=== PATIENT | female | born 1960 ===

== ENCOUNTER 2017-07-31 09:20 | Emergency (ER) | payer SELFPAY ==
[2017-07-31] MEDS ORDERED: Sodium Chloride 0.9% 1,000 ML IV ONE (09:48)
[2017-07-31 10:05] LABS: BASO % 0.4 % (0.0-2.0); EOS # 0.1 K/uL (0.0-0.7); EOS % 1.5 % (0.0-4.0); HEMATOCRIT 35.3 % (34.0-47.0); LYMPH # 1.7 K/uL (1.0-4.3); LYMPH % 36.5 % (20.0-40.0); MEAN CELL VOLUME 91.8 fL (81.0-99.0); MEAN CORPUSCULAR HEMOGLOBIN 31.5 pg (27.0-31.0); MEAN CORPUSCULAR HGB CONC 34.3 g/dL (33.0-37.0); MEAN PLATELET VOLUME 8.7 fL (7.2-11.7); MONO # 0.7 K/uL (0.0-0.8); MONO % 14.6 % (0.0-10.0); NRBC % 0.1 % (0.0-2.0); WHITE BLOOD COUNT 4.5 K/uL (4.8-10.8)
[2017-07-31] MEDS ORDERED: Sodium Chloride 0.9% 1,000 ML ONE (10:14)
[2017-07-31 10:15] LABS: RBC URINE 217 /hpf (0-3); URINE BILIRUBIN NEGATIVE (NEGATIVE); URINE BLOOD 3+ (NEGATIVE); URINE COLOR Amber (YELLOW); URINE GLUCOSE (UA) NORMAL (Normal); URINE KETONE TRACE mg/dL (NEGATIVE); URINE LEUKOCYTE ESTERASE 2+ Leu/uL (Negative); URINE PROTEIN 2+ mg/dL (NEGATIVE); URINE UROBILINOGEN NORMAL mg/dL (0.2-1.0); WBC URINE 12 /hpf (0-5)
[2017-07-31 10:19] LABS: ALB/GLOB RATIO 1.3 (1.0-2.1); ALKALINE PHOSPHATASE 56 U/L (38-126); ALT/SGPT 39 U/L (9-52); AST/SGOT 22 U/L (14-36); BILIRUBIN,TOTAL 0.6 mg/dL (0.2-1.3); BLOOD UREA NITROGEN 12 mg/dL (7-17); CARBON DIOXIDE 28 mmol/L (22-30); CHLORIDE 105 mmol/L (98-107); GFR AFRICAN-AMERICAN > 60; GLUCOSE,RANDOM 95 mg/dL (65-105); POTASSIUM 3.1 mmol/L (3.6-5.2); SODIUM 141 mmol/L (132-148); TOTAL PROTEIN 6.9 g/dL (6.3-8.3)
[2017-07-31] MEDS ORDERED: Potassium Chloride 20 mEq ER Tab PO STA (10:20)
[2017-07-31] MEDS ORDERED: Potassium Chloride 20 mEq ER Tab PO ONE (10:44)
--- NOTE | 2017-07-31 11:37 | C.PDOC ---
History Of Present Illness 56-year-old female, presents to the emergency department with complaints of abdominal pain, and diarrhea for the past few days. Initially, stool was a yellow color, and now it is black. Associated symptoms include chills and dark film to tongue. Patient notes taking Pepto for her symptoms. (-)nausea/vomiting , (-)dizziness, (-)back pain, (-)headache, (-)any other associated symptoms. No other complaints at this time. Time Seen by Provider: 07/31/17 09:24 Chief Complaint (Nursing): Abdominal Pain History Per: Patient History/Exam Limitations: no limitations Onset/Duration Of Symptoms: Days Current Symptoms Are (Timing): Still Present Severity: Moderate Past Medical History Reviewed: Historical Data, Nursing Documentation, Vital Signs Vital Signs: Last Vital Signs Temp 97.6 F 07/31/17 12:44 Pulse 64 07/31/17 12:44 Resp 16 07/31/17 12:44 BP 116/71 07/31/17 12:44 Pulse Ox 98 07/31/17 13:24 Surgical History: Appendectomy Family History: States: No Known Family Hx - Social History Hx Alcohol Use: No Hx Substance Use: No - Immunization History Hx Tetanus Toxoid Vaccination: No Hx Influenza Vaccination: No Hx Pneumococcal Vaccination: No Review Of Systems Except As Marked, All Systems Reviewed And Found Negative. Constitutional: Negative for: Fever, Chills Cardiovascular: Negative for: Chest Pain, Palpitations Respiratory: Negative for: Shortness of Breath Gastrointestinal: Positive for: Abdominal Pain, Diarrhea. Negative for: Nausea , Vomiting Musculoskeletal: Negative for: Back Pain Neurological: Negative for: Weakness, Numbness Physical Exam - Physical Exam Appears: Non-toxic, No Acute Distress Skin: Warm, Dry, No Rash Head: Atraumatic, Normacephalic Eye(s): bilateral: Normal Inspection, PERRL, EOMI Nose: Normal Oral Mucosa: Moist Tongue: Other (darkening of tongue to proximal aspect) Throat: Normal, No Erythema, No Exudate Neck: Normal ROM, Supple Chest: Symmetrical Cardiovascular: Rhythm Regular, No Murmur Respiratory: Normal Breath Sounds, No Accessory Muscle Use Gastrointestinal/Abdominal: Soft, Tenderness (mild lower quadrant tenderness), No Guarding, No Rebound Back: No CVA Tenderness, No Vertebral Tenderness Extremity: Normal ROM Neurological/Psych: Oriented x3, Normal Speech ED Course And Treatment - Laboratory Results Result Diagrams: 07/31/17 10:01 07/31/17 10:01 O2 Sat by Pulse Oximetry: 98 - CT Scan/US Abd Pelvis Other Rad Studies (CT/US): Read By Radiologist, Radiology Report Reviewed CT/US Interpretation: CT abdomen and pelvis. History: Abdominal pain. Comparison: None available. Technique: Multiple contiguous axial images were performed through the abdomen and pelvis with the use of intravenous contrast. Subsequently, sagittal and coronal reformatted images were obtained. This CT exam was performed using one or more of the following dose reduction techniques : Automated exposure control, adjustment of the mA and/or kV according to patient size, and/or use of iterative reconstruction technique. Findings: Minimal atelectasis at the lung bases. No pleural or pericardial effusion. Fatty infiltration of the liver. Gallbladder is preserved. Spleen is preserved. Adrenal glands are preserved. Pancreas is preserved. Upper abdominal bowel is preserved. Right kidney: No calculi or hydronephrosis. Left Kidney: No calculi or hydronephrosis. Underdistended urinary bladder. Heterogeneous uterus. Mild thickening of the sigmoid colon and rectum which may represent an underlying focal colitis. Clinical correlation. Fluid-filled remainder of the colon suggestive for diarrhea illness. Focal cecal diverticulum noted. Appendix not well visualized. Adjacent to the right hemicolon within the right kelly abdomen, there are multiple enhancing soft tissue nodules within the abdominal mesentery for example on series 3, image 90 there is a 1.7 centimeter nodule. More inferiorly on series 3, image 98 there is an additional prominent 1.8 centimeter nodule. Additional adjacent smaller nodules at this level. These are of uncertain clinical etiology. Correlation with PET-CT scan may be helpful if clinically indicated. Few shotty para- aortic and inguinal lymph nodes. Multiple subcutaneous soft tissue nodules within the posterior soft tissues particularly at the level of the buttocks and gluteal regions. Degenerative changes in the spine and bilateral hips. Disc space narrowing at the L5-S1 level. Mild multilevel anterior osteophytosis. Impression: 1. Mild thickening of the sigmoid colon and rectum which may represent an underlying focal colitis. Clinical correlation. Fluid-filled remainder of the colon suggestive for diarrhea illness. Cecal diverticulum. Appendix not well visualized. 2. Adjacent to the right hemicolon within the right kelly abdomen, there are multiple enhancing soft tissue nodules within the abdominal mesentery for example on series 3, image 90 there is a 1.7 centimeter nodule. More inferiorly on series 3, image 98 there is an additional prominent 1.8 centimeter nodule. Additional adjacent smaller nodules at this level. These are of uncertain clinical etiology. Correlation with PET-CT scan may be helpful if clinically indicated. 3. Fatty infiltration of the liver. 4. Additional findings as above. Progress Note: Bloodwork, UA, guaiac, CT Abd/Pel ordered and reviewed. patient treated with IVFs, K-Chloride, Pepcid, Toradol and Morphine. On re-evaluation, pain improved. Tolerating PO. Discussed with pt results and copies given. Discussed (+) stool occult, need for colonoscopy (notes no h/o of colonoscopy), and normal H/H. Also discussed findings of CT with (+) nodules- informed severity unknown therefore strict follow up necassary. Instructed to return to ER if symtpoms persist or worsen. Switchboard Mechanic used to ensure understanding. Case discussed and results reviewed by Dr Gasca, agreed upon plan and treatment. Disposition - Disposition Referrals: [facility] at [facility] [Outside] Betito Aguilar MD [Staff Provider] - Disposition: HOME/ ROUTINE Disposition Time: 13:14 Condition: STABLE Prescriptions: Ciprofloxacin HCl [Cipro] 500 mg PO BID #14 tab Loperamide HCl [Imodium A-D] 2 mg PO DAILY PRN #10 tablet PRN Reason: Diarrhea Metronidazole [Flagyl] 500 mg PO BID #14 tab Instructions: Acute Abdominal Pain (ED) Forms: [facility] (Pakistani) Print Language: HUNGARIAN - Clinical Impression Clinical Impression: Colitis - Scribe Statement The provider has reviewed the documentation as recorded by the Scribe (Zeina Todd) All medical record entries made by the Scribe were at my direction and personally dictated by me. I have reviewed the chart and agree that the record accurately reflects my personal performance of the history, physical exam, medical decision making, and the department course for this patient. I have also personally directed, reviewed, and agree with the discharge instructions and disposition.
[2017-07-31] MEDS ORDERED: Iodixanol 320 MG/ML 100 ML BOTTLE IV ONE (11:43)
[2017-07-31 12:46] VITALS: BP 116/71; PULSE 64; RESP 16; TEMP 97.6
--- NOTE | 2017-07-31 13:08 | CT ---
CT abdomen and pelvis History: Abdominal pain. Comparison: None available. Technique: Multiple contiguous axial images were performed through the abdomen and pelvis with the use of intravenous contrast. Subsequently, sagittal and coronal reformatted images were obtained. This CT exam was performed using one or more of the following dose reduction techniques: Automated exposure control, adjustment of the mA and/or kV according to patient size, and/or use of iterative reconstruction technique. Findings: Minimal atelectasis at the lung bases. No pleural or pericardial effusion. Fatty infiltration of the liver. Gallbladder is preserved. Spleen is preserved. Adrenal glands are preserved. Pancreas is preserved. Upper abdominal bowel is preserved. Right kidney: No calculi or hydronephrosis. Left Kidney: No calculi or hydronephrosis. Underdistended urinary bladder. Heterogeneous uterus. Mild thickening of the sigmoid colon and rectum which may represent an underlying focal colitis. Clinical correlation. Fluid-filled remainder of the colon suggestive for diarrhea illness. Focal cecal diverticulum noted. Appendix not well visualized. Adjacent to the right hemicolon within the right kelly abdomen, there are multiple enhancing soft tissue nodules within the abdominal mesentery for example on series 3, image 90 there is a 1.7 centimeter nodule. More inferiorly on series 3, image 98 there is an additional prominent 1.8 centimeter nodule. Additional adjacent smaller nodules at this level. These are of uncertain clinical etiology. Correlation with PET-CT scan may be helpful if clinically indicated. Few shotty para-aortic and inguinal lymph nodes. Multiple subcutaneous soft tissue nodules within the posterior soft tissues particularly at the level of the buttocks and gluteal regions. Degenerative changes in the spine and bilateral hips. Disc space narrowing at the L5-S1 level. Mild multilevel anterior osteophytosis. Impression: 1. Mild thickening of the sigmoid colon and rectum which may represent an underlying focal colitis. Clinical correlation. Fluid-filled remainder of the colon suggestive for diarrhea illness. Cecal diverticulum. Appendix not well visualized. 2. Adjacent to the right hemicolon within the right kelly abdomen, there are multiple enhancing soft tissue nodules within the abdominal mesentery for example on series 3, image 90 there is a 1.7 centimeter nodule. More inferiorly on series 3, image 98 there is an additional prominent 1.8 centimeter nodule. Additional adjacent smaller nodules at this level. These are of uncertain clinical etiology. Correlation with PET-CT scan may be helpful if clinically indicated. 3. Fatty infiltration of the liver. 4. Additional findings as above.
[2017-07-31 13:16] VITALS: O2SAT 98
== END 2017-07-31 13:40 | disposition home or self-care (01) ==
LOC: C.ER 09:20
DX: K52.9 Noninfective gastroenteritis and colitis, unspecified (principal); E87.6 Hypokalemia
CPT/HCPCS: 74177; 80053; 81001; 83690; 85025; 87086; 96361; 96374; 96375; 99285; G0328; J1885; J7040; Q9967

== ENCOUNTER 2017-10-04 17:46 | Emergency (ER) | payer SELFPAY ==
[2017-10-04 18:09] VITALS: BMI 27.1
[2017-10-04 18:10] VITALS: RESP 18
[2017-10-04] MEDS ORDERED: Sodium Chloride 0.9% 1,000 ML IV ONE (19:52)
--- NOTE | 2017-10-04 20:20 | C.PDOC ---
History Of Present Illness 56 year old female presents to the ED for evaluation of diarrhea which began 3 days ago. Patient also reports she had one episode of vomiting 2 days ago. She tried taking Ciproflaxin, Flagyl, and loperamide without relief. Patient states her "stomach makes lots of noise" and that anything she eats "goes right through her." Patient also reports headache and knee pain that radiates to her legs. She denies fever, chills, recent travel, or history if similar episodes in the past. Chief Complaint (Nursing): GI Problem History Per: Log Hooker (Dee Lyn #[id number]) History/Exam Limitations: language barrier Onset/Duration Of Symptoms: Days (3) Current Symptoms Are (Timing): Still Present Quality Of Discomfort: denies: "Pain" Associated Symptoms: Nausea, Vomiting, Diarrhea. denies: Fever, Chills Additional History Per: Patient Abnormal Vaginal Bleeding: No Past Medical History Reviewed: Historical Data, Nursing Documentation, Vital Signs Vital Signs: Last Vital Signs Temp 98.2 F 10/04/17 22:23 Pulse 84 10/04/17 22:23 Resp 18 10/04/17 22:23 BP 145/85 10/04/17 22:23 Pulse Ox 98 10/04/17 22:23 - Medical History PMH: No Chronic Diseases Surgical History: Appendectomy Family History: States: Unknown Family Hx - Social History Hx Alcohol Use: No Hx Substance Use: No - Immunization History Hx Tetanus Toxoid Vaccination: No Hx Influenza Vaccination: No Hx Pneumococcal Vaccination: No Review Of Systems Constitutional: Negative for: Fever, Chills Gastrointestinal: Positive for: Vomiting, Diarrhea Musculoskeletal: Positive for: Leg Pain Neurological: Positive for: Headache Physical Exam - Physical Exam Appears: Non-toxic, No Acute Distress Skin: Normal Color, Warm, Dry Head: Atraumatic, Normacephalic Eye(s): bilateral: Normal Inspection Oral Mucosa: Moist Neck: Supple Chest: Symmetrical, No Deformity, No Tenderness Cardiovascular: Rhythm Regular, No Murmur Respiratory: Normal Breath Sounds, No Rales, No Rhonchi, No Wheezing Gastrointestinal/Abdominal: Soft, No Tenderness, No Guarding, No Rebound Extremity: Normal ROM, Capillary Refill (less than 2 seconds ) Neurological/Psych: Normal Speech, Normal Cognition ED Course And Treatment - Laboratory Results Result Diagrams: 10/04/17 20:18 10/04/17 20:18 O2 Sat by Pulse Oximetry: 99 (on RA ) Pulse Ox Interpretation: Normal Medical Decision Making Medical Decision Making: Plan: * Bloodwork * Zofran IVP * IV Fluids * reassess and disposition Progress: Bloodwork ordered and reviewed. Zofran IVP and IV Fluids administered. Disposition - Disposition Referrals: [facility] at [facility] [Outside] Disposition: HOME/ ROUTINE Disposition Time: 03:16 Condition: GOOD Additional Instructions: stop antibiotics Prescriptions: Atropine/Diphenoxylate [Lonox 0.025 MG-2.5 MG] 1 tab PO QID PRN 3 Days #12 tab PRN Reason: Diarrhea Potassium Gluconate [Potassium] 99 mg PO DAILY #10 tablet Instructions: Viral Gastroenteritis Forms: Gen Discharge Inst Estonian, [employer] (Romansh) Print Language: ALGERIAN - Clinical Impression Clinical Impression: Gastroenteritis - Scribe Statement The provider has reviewed the documentation as recorded by the Scribe (Raquel Muro) Provider Attestation: All medical record entries made by the Scribe were at my direction and personally dictated by me. I have reviewed the chart and agree that the record accurately reflects my personal performance of the history, physical exam, medical decision making, and the department course for this patient. I have also personally directed, reviewed, and agree with the discharge instructions and disposition.
[2017-10-04 20:23] LABS: BASO % 0.4 % (0.0-2.0); EOS % 0.9 % (0.0-4.0); HEMOGLOBIN 12.6 g/dL (11.0-16.0); LYMPH # 1.4 K/uL (1.0-4.3); LYMPH % 45.5 % (20.0-40.0); MEAN CELL VOLUME 91.6 fL (81.0-99.0); MEAN CORPUSCULAR HEMOGLOBIN 31.3 pg (27.0-31.0); MEAN CORPUSCULAR HGB CONC 34.1 g/dL (33.0-37.0); MEAN PLATELET VOLUME 8.8 fL (7.2-11.7); MONO # 0.5 K/uL (0.0-0.8); MONO % 16.2 % (0.0-10.0); NEUT # 1.1 K/uL (1.8-7.0); NRBC % 0.3 % (0.0-2.0); RBC 4.02 Mil/uL (3.80-5.20); RED CELL DISTRIBUTION WIDTH 13.6 % (11.5-14.5)
[2017-10-04 20:35] LABS: ALB/GLOB RATIO 1.2 (1.0-2.1); ALBUMIN 3.8 g/dL (3.5-5.0); ALT/SGPT 40 U/L (9-52); AST/SGOT 42 U/L (14-36); BLOOD UREA NITROGEN 17 mg/dL (7-17); CALCIUM 8.7 mg/dl (8.6-10.4); GFR AFRICAN-AMERICAN > 60; GFR NON-AFRICAN AMERICAN > 60; LIPASE 68 U/L (23-300)
[2017-10-04] MEDS ORDERED: Sodium Chloride 0.9% 1,000 ML ONE (20:46)
[2017-10-04] MEDS ORDERED: Potassium Chloride 20 mEq/15 ml LIQ UD PO STA (22:07)
[2017-10-04] MEDS ORDERED: Potassium Chloride 20 mEq/15 ml LIQ UD ONE (22:17)
[2017-10-04 22:24] VITALS: BP 145/85; PULSE 84; TEMP 98.2
[2017-10-05 03:17] VITALS: O2SAT 99
== END 2017-10-04 22:55 | disposition home or self-care (01) ==
LOC: C.ER 17:46
DX: K52.9 Noninfective gastroenteritis and colitis, unspecified (principal)
CPT/HCPCS: 80053; 83690; 85025; 96374; 96375; 99284; J1885; J2405; J7040